=== PATIENT | male | born 1930 | race Two or more races ===

== ENCOUNTER 2019-12-10 20:34 | Emergency (ER) | payer MEDICARE, MEDICAID ==
[~2019-12-10] VITALS: Ht 175.3 cm; Wt 81.0 kg
[2019-12-10] MEDS ORDERED: DEXTROSE 50% WATER 50ML SYRINGE IV ONE (20:44)
[2019-12-10] MEDS ORDERED: EPINEPHRINE 0.1MG/ML (1:10,000) 10ML SYR ONE (20:46)
[2019-12-10 20:47] VITALS: BP 0/0
== END 2019-12-10 23:52 | disposition expired ==
LOC: ER 20:34
DX: I46.9 Cardiac arrest, cause unspecified (principal); I11.9 Hypertensive heart disease without heart failure
CPT/HCPCS: 31500; 82962; 92950; 99285; J3490